=== PATIENT | female | born 1995 | race Caucasian/White ===

== ENCOUNTER 2018-03-09 11:15 | Emergency (ER) | payer OTHER ==
--- NOTE | 2018-03-09 11:26 | ER Report ---
History and Physical Time Seen By MD: 11:26 Hx. of Stated Complaint: KNEE GAVE OUT PLAYING SOCCER R SIDE HPI/ROS CHIEF COMPLAINT: Right knee pain HISTORY OF PRESENT ILLNESS: 22-year-old female patient presents to emergency room with complaint of right knee pain. Patient states she was playing soccer this afternoon when she was running and somebody hit her on the side. She states she felt a pop in the back of her knee and she fell with significant amounts of pain. Patient states she has lots of pain to the lateral side of the right knee as well as the back. Patient has not taken any medication for this. She denies having any numbness or tingling to her toes. Patient denies any previous knee injury. Patient denies hitting her head, she denies any neck pain. Patient does rate the pain in her knee a 10 out of 10. REVIEW OF SYSTEMS: Respiratory: No cough, no dyspnea. Cardiovascular: No chest pain, no palpitations. Gastrointestinal: No vomiting, no abdominal pain. Musculoskeletal: As noted above Allergies: Coded Allergies: banana (Verified Allergy, Mild, 02/21/16) Home Meds Active Scripts Ketorolac Tromethamine (KETOROLAC TROMETHAMINE) 10 Mg Tab, 10 MG PO Q6H, #20 TAB Prov:KAILYN BASURTO [employer] 03/09/18 Past Medical/Surgical History Patient has a past medical history of occasional alcohol use. Patient has a surgical history of an appendectomy. Reviewed Nurses Notes: Yes Hx Smoking: No Constitutional Vital Sign - Last 24 Hours 03/09/18 03/09/18 03/09/18 03/09/18 11:15 11:21 11:24 11:30 Temp 98.3 Pulse ??? 110 107 Resp 20 B/P (MAP) 125/89 (101) 125/89 127/84 (98) Pulse Ox 97 97 O2 Delivery Room Air 03/09/18 03/09/18 03/09/18 03/09/18 11:45 12:00 12:15 12:20 Pulse 108 100 100 99 B/P (MAP) 106/95 (99) Pulse Ox 96 95 95 95 03/09/18 03/09/18 03/09/18 03/09/18 12:30 12:35 12:50 13:00 Pulse 102 96 B/P (MAP) 109/70 (83) 104/71 (82) Pulse Ox 94 95 03/09/18 03/09/18 13:05 13:20 Pulse 97 ??? Pulse Ox 95 Physical Exam General Appearance: The patient is alert, has no immediate need for airway protection and no current signs of toxicity. Respiratory: Chest is non tender, lungs are clear to auscultation. Cardiac: regular rate and rhythm Gastrointestinal: Abdomen is soft and non tender, no masses, bowel sounds norm al. Musculoskeletal: Neck: Neck is supple and non tender. Extremities have full range of motion and are non tender. A 7 has tenderness to the lateral aspect of the right knee, she does have some tenderness on the backside. There is no laxity noted in the knee. Although she was guarding the knee. Skin: No rashes or lesions. DIFFERENTIAL DIAGNOSIS: After history and physical exam differential diagnosis was considered for knee sprain, fracture, ligamentous injury. Medical Decision Making EKG/Imaging Imaging KNEE 4 VIEW RIGHT Indication: knee pain Comparison: None. Findings: Distal femur, proximal tibia and fibula, the patella demonstrate normal mineralization and alignment. Soft tissues are unremarkable. IMPRESSION: Normal right knee radiograph. Report Dictated By: Lj Huynh at 03/09/2018 12:43 PM Report E-Signed By: Lj Huynh at 03/09/2018 12:47 PM ED Course/Re-evaluation ED Course Patient was admitted to an exam room, history and physical were obtained. Distal diagnosis were considered. On examination patient has tenderness to the k nee especially the lateral side and the dorsal aspect of the knee. X-rays done of the right knee which was negative. I do have concerns that she may have torn a ligament, there is no obvious laxity to the knee, however I do have concerns about possible ligamentous injury. We did place her in a knee immobilizer, we will go ahead and discharge her home. We will use Toradol for pain. She is to ice her knee and limited to pain. I will like her to follow-up with orthopedics for further evaluation. Patient was given information for [facility]. Decision to Disposition Date: Mar 09, 2018 Decision to Disposition Time: 13:12 Depart Departure Latest Vital Signs Vital Signs Date Time Temp Pulse Resp B/P (MAP) Pulse Ox O2 Delivery O2 Flow Rate FiO2 03/09/18 13:20 ??? 03/09/18 13:05 95 03/09/18 13:00 104/71 (82) 03/09/18 11:24 98.3 20 Room Air Impression: Primary Impression: Knee sprain Condition: Improved Disposition: HOME OR SELF-CARE Referrals: AP MORAES MD New Scripts Ketorolac Tromethamine (KETOROLAC TROMETHAMINE) 10 Mg Tab 10 MG PO Q6H, #20 TAB Prov: KAILYN BASURTO 03/09/18 Patient Instructions: Knee Sprain (ED) Additional Instructions: Limit activity by pain. Ice the knee 2-3 times a day for 20-30 minutes. You may take the immobilizer off to shower or to sleep. Follow up with [facility], call tomorrow to make an appointment. Don't take any additional ibuprofen, Aleve, Motrin or naproxen while on the Toradol. Problem Qualifiers Primary Impression: Knee sprain Encounter type: initial encounter Involved ligament of knee: unspecified ligament Laterality: right Qualified Codes: S83.91XA - Sprain of unspecified site of right knee, initial encounter KAILYN BASURTO Mar 09, 2018 11:26
[2018-03-09] MEDS ORDERED: MORPHINE 4 MG/ML SDV IVP ONE (11:35)
[2018-03-09] MEDS ORDERED: KETOROLAC 15 MG/ML VIAL IVP ONE (11:45)
[2018-03-09] MEDS ORDERED: ONDANSETRON 4 MG/2 ML VIAL IVP ONE (11:45)
--- NOTE | 2018-03-09 12:50 | RADIOLOGY IMAGING REPORT ---
FACILITY: [facility] - [place] PATIENT NAME: Rubi Nowak : 1995 MR: [id number] V: [id number] EXAM DATE: ORDERING PHYSICIAN: KAILYN BASURTO TECHNOLOGIST: Location: [facility] [place] Patient: Rubi Nowak : 1995 Visit/Account:[id number] Date of Sevice: 03/09/2018 KNEE 4 VIEW RIGHT Indication: knee pain Comparison: None. Findings: Distal femur, proximal tibia and fibula, the patella demonstrate normal mineralization and alignment. Soft tissues are unremarkable. IMPRESSION: Normal right knee radiograph. Report Dictated By: Lj Huynh at 03/09/2018 12:43 PM Report E-Signed By: Lj Huynh at 03/09/2018 12:47 PM WSN:[id number]
[2018-03-09 13:00] VITALS: BP 104/71
[2018-03-09] MEDS ORDERED: KET10 PO (13:10)
== END 2018-03-09 13:34 | disposition home or self-care (01) ==
LOC: ER 11:37
DX: S83.91XA Sprain of unspecified site of right knee, initial encounter (principal)
CPT/HCPCS: 73564; 96374; 96375; 99284; J1885; J2405; L1830

== ENCOUNTER → 2018-11-05 | Outpatient (CLI) | payer OTHER ==
[~2018-11-05] MED LIST: CLON-331 PO; ETHI1TAB16 PO; FAMO-67 PO; KET10 PO; NAPR-1043 PO; muscle relaxant
[2018-11-05 14:35] LABS: PLATELET COUNT, AUTOMATED 414 K/uL (150-450)
== END ==
LOC: LAB 14:15
PROVIDERS: ATTEND Nurse Practitioner Family
DX: R07.9 Chest pain, unspecified (principal)
CPT/HCPCS: 36415; 82040; 82247; 82310; 82374; 82435; 82565; 82947; 83690; 84075; 84132; 84155; 84295; 84450; 84460; 84520; 85025

== ENCOUNTER 2018-11-06 08:04 | Observation (INO) | payer OTHER ==
[~2018-11-06 08:04] MED LIST changes: -CLON-331 PO; -ETHI1TAB16 PO; -FAMO-67 PO; -NAPR-1043 PO; -muscle relaxant
[2018-11-06] MEDS ORDERED: muscle relaxant (08:12)
[2018-11-06] MEDS ORDERED: NS(*) 0.9% 1000 ML BAG 1,000 ML IV ONE (08:30)
[2018-11-06 08:34] LABS: PLATELET COUNT, AUTOMATED 428 K/uL (150-450)
[2018-11-06 08:42] LABS: INR 0.97
--- NOTE | 2018-11-06 08:42 | EKG ---
FACILITY: [facility] - [place] PATIENT NAME: JANELLE MCCORMICK : [id number] MR: [id number] V: [id number] EXAM DATE: ORDERING PHYSICIAN: ANITRA NESBITT TECHNOLOGIST: Test Reason : chest pain Blood Pressure : / mmHG Vent. Rate : 102 BPM Atrial Rate : 102 BPM P-R Int : 134 ms QRS Dur : 070 ms QT Int : 336 ms P-R-T Axes : 045 057 025 degrees QTc Int : 437 ms Sinus tachycardia Otherwise normal ECG No previous ECGs available Confirmed by SRIRAM WALSH ([id number]) on 11/06/2018 3:23:05 PM Referred By: Confirmed By:SRIRAM WALSH
--- NOTE | 2018-11-06 08:48 | ER Report ---
History and Physical Time Seen By MD: 08:15 Hx. of Stated Complaint: right lower chest pain, difficult to breath in certain positions HPI/ROS CHIEF COMPLAINT: Chest pain, shortness breath HISTORY OF PRESENT ILLNESS: Patient developed pain on the right side of the chest on Saturday evening. Pain is dull, radiates to her right shoulder, worse with lying down, better with sitting up, worse with some arm movements. Pain has been constant and moderately severe. Patient does not have shortness of breath at rest, the pain is worse with deep breath. She is not coughing, has no fevers, chills. She denies abdominal pain, pain on left side of the chest, nausea, vomiting, sensation with food. She's never had similar pain before. She has no leg swelling. She has had no recent trauma, falls. She had anterior cruciate ligament surgery 7 months ago. She has had no complications from this. There is no family history of VTE. LMP 25 Apr REVIEW OF SYSTEMS: Constitutional: No fever, no chills. Eyes: no blurred vision ENT: No sore throat. Cardiovascular: above Respiratory: above Gastrointestinal: No abdominal pain, no vomiting. Genitourinary: no dysuria Musculoskeletal: r thoracic, shoulder pain Skin: No rashes. Neurological: No headache. Remainder of the 14 system rev: Yes Allergies: Coded Allergies: iodine (Verified Allergy, Intermediate, blisters, 11/06/18) banana (Verified Allergy, Mild, 02/21/16) Uncoded Allergies: laytex (Allergy, Intermediate, blisters, 11/06/18) Home Meds Reported Medications Ethinyl Estradiol/Drospirenone (GIANVI 3 MG-0.02 MG TABLET) 1 Each Tablet, 1 EACH PO QDAY Skips placesbos for 3 packs, takes them for 4th 11/06/18 Clonazepam (CLONAZEPAM) 0.5 Mg Tablet, 0.5-1 TAB PO HS PRN for MUSCLE SPASMS, #6 TAB 11/06/18 Discontinued Reported Medications [muscle relaxant] No Conflict Check 11/06/18 Discontinued Scripts Ketorolac Tromethamine (KETOROLAC TROMETHAMINE) 10 Mg Tab, 10 MG PO Q6H, #20 TAB Prov:KAILYN BASURTOP 03/09/18 Reviewed Nurses Notes: Yes Hx Smoking: No Hx Substance Use Disorder: No Hx Alcohol Use: Yes (OCC) Constitutional Vital Sign - Last 24 Hours 11/06/18 11/06/18 11/06/18 11/06/18 08:14 08:30 09:00 09:30 Temp 98.6 Pulse 113 102 99 98 Resp 18 19 17 B/P (MAP) 129/86 102/57 (72) 111/72 (85) 115/82 (93) Pulse Ox 95 94 100 94 O2 Delivery Room Air 11/06/18 11/06/18 11/06/18 10:00 10:30 11:00 Pulse 101 114 105 Resp 27 21 19 B/P (MAP) 116/75 (89) 125/88 (100) Pulse Ox 97 95 97 Physical Exam General Appearance: The patient is alert, has no immediate need for airway protection and no signs of toxicity. Eyes: Pupils equal and round no pallor or injection. ENT, Mouth: Mucous membranes are moist. Respiratory: There are no retractions, lungs are clear to auscultation. Cardiovascular: tachcyardia, no m/r/g Gastrointestinal: Abdomen is soft and non tender, no masses, bowel sounds normal. Neurological: alert, oriented, moves all ext Skin: Warm and dry, no rashes. Musculoskeletal: Neck is supple non tender. Extremities are nontender, nonswollen and have full range of motion with exception of r popliteal pain R thoracic paraspinal pain reproduces symptoms. DIFFERENTIAL DIAGNOSIS: After history and physical exam differential diagnosis was considered for shortness of breath including but not limited to pulmonary infectious process, COPD, asthma, pulmonary embolus and congestive heart failure. chest pain including but not limited to myocardial ischemia, pericarditis pulmonary embolus, chest wall pain, pleural inflammation and pulmonary infectious causes. Medical Decision Making Data Points Result Diagram: 11/06/1817 11/06/18 0817 Laboratory Hematology Test 11/06/18 08:17 11/06/18 08:30 11/06/18 10:53 Red Blood Count 4.81 M/uL (4.17-5.56) Mean Corpuscular Volume 91.4 fL (80.0-96.0) Mean Corpuscular Hemoglobin 31.0 pg (26.0-33.0) Mean Corpuscular Hemoglobin Concent 33.9 g/dL (32.0-36.0) Red Cell Distribution Width 12.9 % (11.5-14.5) Mean Platelet Volume 6.3 fL (7.2-11.1) Neutrophils (%) (Auto) 66.9 % (39.4-72.5) Lymphocytes (%) (Auto) 23.1 % (17.6-49.6) Monocytes (%) (Auto) 7.8 % (4.1-12.4) Eosinophils (%) (Auto) 1.8 % (0.4-6.7) Basophils (%) (Auto) 0.4 % (0.3-1.4) Nucleated RBC Relative Count (auto) 0.1 /100WBC Neutrophils # (Auto) 6.6 K/uL (2.0-7.4) Lymphocytes # (Auto) 2.3 K/uL (1.3-3.6) Monocytes # (Auto) 0.8 K/uL (0.3-1.0) Eosinophils # (Auto) 0.2 K/uL (0.0-0.5) Basophils # (Auto) 0.0 K/uL (0.0-0.1) Nucleated RBC Absolute Count (auto) 0.01 K/uL Prothrombin Time 12.9 seconds (12.0-14.4) Prothromb Time International Ratio 0.97 Activated Partial Thromboplast Time 30 seconds (23-35) D-Dimer Quantitative (PE/DVT) 0.77 ug/ml (0-0.50) Sodium Level 140 mmol/L (137-145) Potassium Level 3.9 mmol/L (3.5-5.0) Chloride Level 103 mmol/L (98-107) Carbon Dioxide Level 25 mmol/L (22-31) Blood Urea Nitrogen 9 mg/dl (7-18) Creatinine 0.80 mg/dl (0.52-1.04) Glomerular Filtration Rate Calc > 60.0 Random Glucose 98 mg/dl (75-110) Calcium Level 9.8 mg/dl (8.4-10.2) Total Bilirubin 0.5 mg/dl (0.2-1.3) Aspartate Amino Transf (AST/SGOT) 23 U/L (0-35) Alanine Aminotransferase (ALT/SGPT) 23 U/L (0-56) Alkaline Phosphatase 80 U/L (0-126) Troponin I < 0.012 ng/ml Total Protein 8.4 g/dl (6.3-8.2) Albumin 4.8 g/dl (3.5-5.0) Lipase 179 U/L (23-300) Human Chorionic Gonadotropin, Qual Negative (NEGATIVE) Urine Color Yellow Urine Clarity Clear Urine pH 6.0 pH (4.8-9.5) Urine Specific [place] 1.013 Urine Protein Negative mg/dL (NEGATIVE) Urine Glucose (UA) Negative mg/dL (NEGATIVE) Urine Ketones Negative mg/dL (NEGATIVE) Urine Blood Negative (NEGATIVE) Urine Nitrite Negative (NEGATIVE) Urine Bilirubin Negative (NEGATIVE) Urine Urobilinogen Negative mg/dL (0.2-1.9) Urine Leukocyte Esterase Trace (NEGATIVE) Urine RBC <1 /HPF (0-2/HPF) Urine WBC 2 /HPF (0-5/HPF) Urine Squamous Epithelial Cells Moderate /LPF (</=FEW) Urine Bacteria Few /HPF (NONE-FEW) Urine Mucus None /HPF (NONE-FEW) Lactate 1.2 mmol/L (0.7-2.1) Chemistry Test 11/06/18 08:17 11/06/18 08:30 11/06/18 10:53 White Blood Count 9.9 k/uL (4.5-11.0) Red Blood Count 4.81 M/uL (4.17-5.56) Hemoglobin 14.9 g/dL (12.0-16.0) Hematocrit 44.0 % (34.0-47.0) Mean Corpuscular Volume 91.4 fL (80.0-96.0) Mean Corpuscular Hemoglobin 31.0 pg (26.0-33.0) Mean Corpuscular Hemoglobin Concent 33.9 g/dL (32.0-36.0) Red Cell Distribution Width 12.9 % (11.5-14.5) Platelet Count 428 K/uL (150-450) Mean Platelet Volume 6.3 fL (7.2-11.1) Neutrophils (%) (Auto) 66.9 % (39.4-72.5) Lymphocytes (%) (Auto) 23.1 % (17.6-49.6) Monocytes (%) (Auto) 7.8 % (4.1-12.4) Eosinophils (%) (Auto) 1.8 % (0.4-6.7) Basophils (%) (Auto) 0.4 % (0.3-1.4) Nucleated RBC Relative Count (auto) 0.1 /100WBC Neutrophils # (Auto) 6.6 K/uL (2.0-7.4) Lymphocytes # (Auto) 2.3 K/uL (1.3-3.6) Monocytes # (Auto) 0.8 K/uL (0.3-1.0) Eosinophils # (Auto) 0.2 K/uL (0.0-0.5) Basophils # (Auto) 0.0 K/uL (0.0-0.1) Nucleated RBC Absolute Count (auto) 0.01 K/uL Prothrombin Time 12.9 seconds (12.0-14.4) Prothromb Time International Ratio 0.97 Activated Partial Thromboplast Time 30 seconds (23-35) D-Dimer Quantitative (PE/DVT) 0.77 ug/ml (0-0.50) Glomerular Filtration Rate Calc > 60.0 Calcium Level 9.8 mg/dl (8.4-10.2) Total Bilirubin 0.5 mg/dl (0.2-1.3) Aspartate Amino Transf (AST/SGOT) 23 U/L (0-35) Alanine Aminotransferase (ALT/SGPT) 23 U/L (0-56) Alkaline Phosphatase 80 U/L (0-126) Troponin I < 0.012 ng/ml Total Protein 8.4 g/dl (6.3-8.2) Albumin 4.8 g/dl (3.5-5.0) Lipase 179 U/L (23-300) Human Chorionic Gonadotropin, Qual Negative (NEGATIVE) Urine Color Yellow Urine Clarity Clear Urine pH 6.0 pH (4.8-9.5) Urine Specific [place] 1.013 Urine Protein Negative mg/dL (NEGATIVE) Urine Glucose (UA) Negative mg/dL (NEGATIVE) Urine Ketones Negative mg/dL (NEGATIVE) Urine Blood Negative (NEGATIVE) Urine Nitrite Negative (NEGATIVE) Urine Bilirubin Negative (NEGATIVE) Urine Urobilinogen Negative mg/dL (0.2-1.9) Urine Leukocyte Esterase Trace (NEGATIVE) Urine RBC <1 /HPF (0-2/HPF) Urine WBC 2 /HPF (0-5/HPF) Urine Squamous Epithelial Cells Moderate /LPF (</=FEW) Urine Bacteria Few /HPF (NONE-FEW) Urine Mucus None /HPF (NONE-FEW) Lactate 1.2 mmol/L (0.7-2.1) Coagulation Test 11/06/18 08:17 Prothrombin Time 12.9 seconds Prothromb Time International Ratio 0.97 Activated Partial Thromboplast Time 30 seconds D-Dimer Quantitative (PE/DVT) 0.77 ug/ml Urinalysis Test 11/06/18 08:30 Urine Color Yellow Urine Clarity Clear Urine pH 6.0 pH (4.8-9.5) Urine Specific [place] 1.013 Urine Protein Negative mg/dL (NEGATIVE) Urine Glucose (UA) Negative mg/dL (NEGATIVE) Urine Ketones Negative mg/dL (NEGATIVE) Urine Blood Negative (NEGATIVE) Urine Nitrite Negative (NEGATIVE) Urine Bilirubin Negative (NEGATIVE) Urine Urobilinogen Negative mg/dL (0.2-1.9) Urine Leukocyte Esterase Trace (NEGATIVE) Urine RBC <1 /HPF (0-2/HPF) Urine WBC 2 /HPF (0-5/HPF) Urine Squamous Epithelial Cells Moderate /LPF (</=FEW) Urine Bacteria Few /HPF (NONE-FEW) Urine Mucus None /HPF (NONE-FEW) EKG/Imaging EKG Interpretation 12 lead EKG: Rhythm: sinus tachycardia [place]: normal QRS: normal ST segments: normal sinus tachcyardia. Oth unremarkable. Monitor Interpretation: Sinus Tachycardia ED Course/Re-evaluation ED Course Patient presents with right-sided chest pain, worse with lying down, worse with deep breath. She does not have abdominal tenderness or Sandoval's sign on exam. I performed bedside ultrasound and note no pneumothorax, unremarkable echo including normal right heart, no pericardial effusion. After history and physical, exam and findings most concerning for PE, pneumonia, or atypical presentation of ACS, cholecystitis, or other emergent etiology. Despite 1 L IVF pt remains tachycardic, uncomfortable. While PE suspected, CT does not identify this but does note r diaphragmatic based pleural effusion. Diff includes infection, maligancny, PE not identified by CT or other etiology. Given pt's continued discomfort, ill appearance, will admit for iv abx, mo nitoring, US to further evaluate for VTE, echo, and reassessment. Decision to Disposition Date: November 06, 2018 Decision to Disposition Time: 10:32 Depart Departure Latest Vital Signs Vital Signs Date Time Temp Pulse Resp B/P (MAP) Pulse Ox O2 Delivery O2 Flow Rate FiO2 11/06/18 11:00 105 19 97 11/06/18 10:30 125/88 (100) 11/06/18 08:14 98.6 Room Air Impression: Primary Impression: Pleural effusion Condition: Condition Unchanged Disposition: Admitted from ER ANITRA NESBITT MD November 06, 2018 08:49
[2018-11-06] MEDS ORDERED: NS(*) 0.9% 50 ML BAG 50 ML ONE (09:17)
[2018-11-06] MEDS ORDERED: IOPAMIDOL 76% 100 ML INFUS BTL 100 ML ONE (09:17)
--- NOTE | 2018-11-06 09:25 | RADIOLOGY IMAGING REPORT ---
FACILITY: [facility] PATIENT NAME: Rubi Nowak : 1995 MR: [id number] V: [id number] EXAM DATE: ORDERING PHYSICIAN: ANITRA NESBITT TECHNOLOGIST: Location: [facility] [place] Patient: Rubi Nowak : 1995 Visit/Account:[id number] Date of Sevice: 11/06/2018 Chest 2 views: HISTORY: Chest pain, dyspnea COMPARISON: None. FINDINGS: Frontal and lateral chest: Cardiomediastinal silhouette is within normal limits. There is no infiltrate or pleural effusion. No pneumothorax. Pulmonary vasculature is normal. Mild thoracic scoliosis convex to the right is present. Osseous structures are otherwise unremarkabl e. IMPRESSION: No evidence of acute cardiopulmonary abnormality. Report Dictated By: Karli Motley MD at 11/06/2018 9:01 AM Report E-Signed By: Karli Motley MD at 11/06/2018 9:02 AM WSN:[id number]
[2018-11-06] MEDS ORDERED: MORPHINE 2 MG/ML SYR IVP ONE (10:15)
--- NOTE | 2018-11-06 10:15 | RADIOLOGY IMAGING REPORT ---
FACILITY: [facility] [place] PATIENT NAME: Rubi Nowak : 1995 MR: [id number] V: [id number] EXAM DATE: ORDERING PHYSICIAN: ANITRA NESBITT TECHNOLOGIST: Location: [facility] - [place], [place] Patient: Rubi Nowak : 1995 Visit/Account:[id number] Date of Sevice: 11/06/2018 CT CTA CHEST W & W/O CON HISTORY: dyspnea, elevated dimer chest pain on right side started Saturday, difficulty breathing ADDITIONAL HISTORY: None. TECHNIQUE: CTA chest with intravenous contrast. Axial imaging acquired following administration of IV contrast timed for maximum opacification of the pulmonary arterial vasculature. Slab 3-D MIP yue nstructed images were also created for further evaluation and interpretation. Reconstruction of the [facility] data set includes multiplanar 2-D in the sagittal and coronal planes and 3-D reconstructed yu nal slab MIP series. 3-D images were created by the technologist.Dose Lowering Technique One of the following dose optimization techniques was utilized in the performance of this exam: Autom ated exposure control; adjustment of the mA and/or kV according to the patient's size; or use of an i terative reconstruction technique. Specific details can be referenced in the facility's radiology C T exam operational policy. CONTRAST: 75 mL Isovue-370 COMPARISON: Two view chest performed today FINDINGS: Lungs/pleura: There is a small posterior layering right pleural effusion. Heart/vessels: Negative. There are no filling defects seen in the pulmonary arteries worrisome for a pulmonary embolus. Mediastinum/lymph nodes: Negative. Visualized upper abdomen: Negative. Bones/soft tissues: There is a gentle S-shaped scoliosis of the thoracic spine Additional findings: None IMPRESSION: There is a small posterior layering right pleural effusion. No evidence of underlying pulmonary cons olidation No evidence of pulmonary emboli Report Dictated By: Siri Vigil MD at 11/06/2018 9:50 AM Report E-Signed By: Siri Vigil MD at 11/06/2018 10:11 AM WSN:[email or web address]
[2018-11-06] MEDS ORDERED: AZITHROMYCIN(*) 500 MG 500 MG in NS(*) 0.9% 250 ML BAG 250 ML IVPB ONE (10:30)
[2018-11-06] MEDS ORDERED: cefTRIAXone(*) 1 GM VIAL 1 GM in NS(*) 0.9% 100 ML MINI-BAG 100 ML IVPB ONE (10:30)
[2018-11-06] MEDS ORDERED: cefTRIAXone 1 GM VIAL ONE (10:37)
[2018-11-06] MEDS ORDERED: MORPHINE 4 MG/ML SDV IVP ONE (11:00)
[2018-11-06] MEDS ORDERED: ETHI1TAB16 PO (11:44)
[2018-11-06] MEDS ORDERED: CLON-331 PO (11:44)
[2018-11-06 12:00] VITALS: BP 135/85
--- NOTE | 2018-11-06 12:26 | RADIOLOGY IMAGING REPORT ---
FACILITY: [facility] [place] PATIENT NAME: Rubi Nowak : 1995 MR: [id number] V: [id number] EXAM DATE: ORDERING PHYSICIAN: ANITRA NESBITT TECHNOLOGIST: Location: [facility] Patient: Rubi Nowak : 1995 Visit/Account:[id number] Date of Sevice: 11/06/2018 Bilateral lower extremity duplex venous ultrasound Indication: Leg swelling Comparison: None Available Findings: Duplex Doppler and color flow imaging was performed. The bilateral common femoral, femoral , and popliteal veins are all patent and compressible with normal Doppler wave forms. There are norm al responses to augmentation. The proximal greater saphenous veins are also normal. Impression: 1. No evidence of deep venous thrombosis of the bilateral lower extremities. Report Dictated By: Main Lake MD at 11/06/2018 12:22 PM Report E-Signed By: Main Lake MD at 11/06/2018 12:22 PM WSN:[id number]
[2018-11-06] MEDS ORDERED: DIAZEPAM 10 MG TAB PO PRN (13:00)
--- NOTE | 2018-11-06 13:11 | History & Physical ---
History of Present Illness Chief Complaint Shortness of breath History of Present Illness This patient presented to the emergency room with complaints of shortness of breath. She reports sudden onset on Saturday and describes a pain in her right ribs and chest that limits her ability to take a breath. She denies any cough or fever. History Problems: (1) No significant medical problems Home Meds Reported Medications Ethinyl Estradiol/Drospirenone (GIANVI 3 MG-0.02 MG TABLET) 1 Each Tablet, 1 EACH PO QDAY 11/06/18 Clonazepam (CLONAZEPAM) 0.5 Mg Tablet, 0.5-1 TAB PO HS PRN for MUSCLE SPASMS, #6 TAB 11/06/18 Discontinued Reported Medications [muscle relaxant] No Conflict Check 11/06/18 Discontinued Scripts Ketorolac Tromethamine (KETOROLAC TROMETHAMINE) 10 Mg Tab, 10 MG PO Q6H, #20 TAB Prov:KAILYN BASURTO [employer]UITING [employer]INATOR 03/09/18 Allergies: Coded Allergies: iodine (Verified Allergy, Intermediate, blisters, 11/06/18) banana (Verified Allergy, Mild, 02/21/16) Uncoded Allergies: laytex (Allergy, Intermediate, blisters, 11/06/18) Hx Smoking: No Hx Alcohol Use: Yes (OCC) Review of Systems All Systems Reviewed/Normal: Yes, Except as Noted Respiratory: Shortness of Breath Exam Vital Signs Vital Signs Date Time Temp Pulse Resp B/P (MAP) Pulse Ox O2 Delivery O2 Flow Rate FiO2 11/06/18 12:00 99.3 116 24 135/85 (102) 94 Room Air Neuro: No Gross deficits Eyes: PERRLA Cardiovascular: Regular Rate and Rhythm GI: Abd Soft and Non-Tender Lymph: Other (Pain to palpation around right ribs 7-9) Extremities: No Edema Integumentary: No Cyanosis Medical Decision Making Data Points Result Diagram: 11/06/1881611/06/18816 Assessment and Plan Problems: (1) Pleurisy with effusion Assessment & Plan: She does have pain located around the right 7-[address] scan was negative for pneumonia or clot, but did show a small pleural effusion. We attempt to treat her with muscle relaxers and Kpad. A repeat x-ray is ordered for tomorrow. Venous Thromboembolism Antithrombotics Is Pt On Any Antithrombotics?: No Exam Sepsis Risk: No Definite Risk SRIRAM WALSH DO November 06, 2018 13:11
[2018-11-06] MEDS ORDERED: PROMETHAZINE 25 MG/ML 1 ML AMP IVP PRN (15:35)
[2018-11-06 20:25] VITALS: BP_SYST 102
[2018-11-06] MEDS: KETOROLAC 30 MG/ML VIAL IVP PRN (20:30)
[2018-11-07 03:44] VITALS: BP 111/76
[2018-11-07] MEDS: KETOROLAC 30 MG/ML VIAL IVP PRN ×2 (03:48→10:10)
--- NOTE | 2018-11-07 06:38 | RADIOLOGY IMAGING REPORT ---
FACILITY: [facility] - [place] PATIENT NAME: Rubi Nowak : 1995 MR: [id number] V: [id number] EXAM DATE: ORDERING PHYSICIAN: SRIRAM WALSH TECHNOLOGIST: Location: [facility] - [place] Patient: Rubi Nowak : 1995 Visit/Account:[id number] Date of Sevice: 11/07/2018 TWO VIEW CHEST 11/07/2018 6:00 AM. INDICATION: pleural effusion COMPARISON: Yesterday. FINDINGS: Lungs are well-expanded. Probable persistent small right pleural effusion with adjacent at electasis. The lungs are otherwise clear. No pneumothorax. Heart size is normal. IMPRESSION: Probable small persistent right pleural effusion with adjacent atelectasis. Report Dictated By: Juan Salgado MD at 11/07/2018 6:31 AM Report E-Signed By: Juan Salgado MD at 11/07/2018 6:34 AM WSN:[id number]
[2018-11-07 09:26] VITALS: BP 123/90
[2018-11-07] MEDS ORDERED: NAPR-1043 PO (11:30)
[2018-11-07] MEDS ORDERED: FAMO-67 PO (11:30)
--- NOTE | 2018-11-07 11:37 | Hospitalist Depart ---
Discharge Summary Reason for Hosp/Final Diag: (1) Pleurisy with effusion Hospital Course & Plan: She does have pain located around the right 7-9 ribs that started a couple days prior to admission. She has had URI symptoms for the last couple days to week. A CT scan was negative for pneumonia or clot, but did show a small pleural effusion. WBC wnl. Normal differential. Afebrile. Borderline tachycardic. Repeat CXR was unchanged. Still having the pain but Toradol helping. Likely, viral in origin and can go home with NSAID use. If the pain worsens or doesn't improve then an autoimmune work up is warranted. Departure Weight (Pounds): 141 Result Diagram: 11/06/1881611/06/18816 Item Value Date Time Neutrophils (%) (Auto) 66.9 % 11/06/18 08 Lymphocytes (%) (Auto) 23.1 % 11/06/18816 Monocytes (%) (Auto) 7.8 % 11/06/18816 Eosinophils (%) (Auto) 1.8 % 11/06/18816 Basophils (%) (Auto) 0.4 % 11/06/18816 Prothromb Time International Ratio 0.97 11/06/18 08 D-Dimer Quantitative (PE/DVT) 0.77 ug/ml H 11/06/18 08 Urine Leukocyte Esterase Trace H 11/06/18 0830 Urine RBC <1 /HPF 11/06/18 0830 Urine WBC 2 /HPF 11/06/18 0830 Urine Squamous Epithelial Cells Moderate /LPF H 11/06/18 0830 Urine Bacteria Few /HPF 11/06/18 0830 Total Bilirubin 0.5 mg/dl 11/06/18 08 Aspartate Amino Transf (AST/SGOT) 23 U/L 11/06/18 0817 Alanine Aminotransferase (ALT/SGPT) 23 U/L 11/06/18 0817 Alkaline Phosphatase 80 U/L 11/06/18 0817 Troponin I < 0.012 ng/ml 11/06/18 08 Human Chorionic Gonadotropin, Qual Negative 11/06/18 0817 Lipase 179 U/L 11/06/18 0817 Lactate 1.2 mmol/L 11/06/18 1053 No growth from blood cultures x2 from admission as of yet. Imaging 11/07/18 CXR - Probable small persistent right pleural effusion with adjacent atelectasis. 11/06/18 Venogram - 1. No evidence of deep venous thrombosis of the bilateral lower extremities. 11/06/18 Chest CTA - There is a small posterior layering right pleural effusion. No evidence of underlying pulmonary consolidation No evidence of pulmonary emboli 11/06/18 CXR - No evidence of acute cardiopulmonary abnormality. EKG Vent. Rate : 102 BPM Atrial Rate : 102 BPM P-R Int : 134 ms QRS Dur : 070 ms QT Int : 336 ms P-R-T Axes : 045 057 025 degrees QTc Int : 437 ms Sinus tachycardia Otherwise normal ECG No previous ECGs available Confirmed by SRIRAM WALSH ([id number]) on 11/06/2018 3:23:05 PM Condition: Improved Discharge: Home Discharge Instructions Home Meds Active Scripts Famotidine (FAMOTIDINE) 20 Mg Tablet, 20 MG PO BID for 3 Days, TAB after 3 days, then take as needed for upset stomach from naprosyn Prov:JASON MANDUJANO MD 11/07/18 Naproxen Sodium (ALEVE) 220 Mg Tablet, 440 MG PO Q12H for 3 Days, TAB take for 3 days, then as needed for pain Prov:JASON MANDUJANO MD 11/07/18 Reported Medications Ethinyl Estradiol/Drospirenone (GIANVI 3 MG-0.02 MG TABLET) 1 Each Tablet, 1 EACH PO QDAY Skips placesbos for 3 packs, takes them for 4th 11/06/18 Discontinued Reported Medications Clonazepam (CLONAZEPAM) 0.5 Mg Tablet, 0.5-1 TAB PO HS PRN for MUSCLE SPASMS, #6 TAB 11/06/18 [muscle relaxant] No Conflict Check 11/06/18 Discontinued Scripts Ketorolac Tromethamine (KETOROLAC TROMETHAMINE) 10 Mg Tab, 10 MG PO Q6H, #20 TAB Prov:KAILYN BASURTO 03/09/18 Diet: Regular Activity: As Tolerated Special Instructions: Go to the ER if the pain worsens or is not improving in a week Venous Thromboembolism Antithrombotics Is Pt On Any Antithrombotics?: No JASON MANDUJANO MD November 07, 2018 11:37
[2018-11-09] MEDS ORDERED: INFLUENZA VIRUS VAC 0.5ML SYR IM ONLY ONE (09:00)
== END 2018-11-07 12:12 | disposition home or self-care (01) ==
LOC: ER 08:27 → MED 11:22 → INTOOBSV 11:22 → MED 15:50
PROVIDERS: ADMIT Family Medicine; ATTEND Family Medicine
DX: J90 Pleural effusion, not elsewhere classified (principal); Z79.899 Other long term (current) drug therapy
CPT/HCPCS: 71046; 71275; 81001; 83605; 83690; 84484; 84703; 85025; 85379; 85610; 85730; 87040; 93005; 93970; 96361; 96374; 96375; 96376; 99285; G0378; J0456; J0696; J1885; J2270; J2550; J7030; J7050; Q9967; 82040; 82247; 82310; 82374; 82435; 82565; 82947; 84075; 84132; 84155; 84295; 84450; 84460; 84520